=== PATIENT | male | born 1980 | race Caucasian/White ===

== ENCOUNTER 2018-12-08 13:33 | Emergency (ER) | payer SELFPAY ==
[~2018-12-08] VITALS: Ht 177.8 cm; Wt 82.6 kg
--- NOTE | 2018-12-08 14:10 | RAD ---
CHEST PA LATERAL History: Shortness of breath.. The heart size is not enlarged. No evidence of pneumothorax, pleural effusion or consolidation. There are mild markings in the lung bases, likely atelectasis. Bones appear to be intact. IMPRESSION: Mild lung base opacities likely atelectasis. Electronically signed by: Lyle Burns MD (12/08/2018 2:06 PM) [facility]
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
[2018-12-08 15:00] VITALS: BP 132/67
== END 2018-12-08 15:10 | disposition home or self-care (01) ==
LOC: ER 13:33
DX: R06.02 Shortness of breath (principal)
CPT/HCPCS: 71046; 99284

== ENCOUNTER 2018-12-08 16:34 | Emergency (ER) | payer SELFPAY ==
[2018-12-08 15:00] VITALS: BP 132/67
== END 2018-12-08 16:47 | disposition left against medical advice (07) ==
LOC: ER 16:34
DX: R06.02 Shortness of breath (principal); Z53.21 Procedure and treatment not carried out due to patient leaving prior to being seen by health care provider